=== PATIENT | female | born 1940 | race Hispanic/Latino ===

== ENCOUNTER 2017-12-12 07:59 | Day surgery (SDC) | payer MEDICARE ==
[2017-12-10 18:15] VITALS: BMI 21.4
[2017-12-12] MEDS ORDERED: Lidocaine PF 2% (5 ml) Inj (For Cardiac Arrhy) ONE (09:13)
[2017-12-12] MEDS ORDERED: Propofol 10 mg/ml Inj (20 ML) ONE (09:13)
[2017-12-12] MEDS ORDERED: Sodium Chloride 0.9% 1,000 ML IV SCH (10:00)
[2017-12-12 11:04] VITALS: PULSE 61; TEMP 98; O2SAT 97
[2017-12-12 12:31] VITALS: BP 156/77; RESP 15
== END 2017-12-12 11:40 | disposition home or self-care (01) ==
LOC: ENDO 07:59
PROVIDERS: ATTEND Specialist
DX: K31.7 Polyp of stomach and duodenum (principal); K44.9 Diaphragmatic hernia without obstruction or gangrene; D50.9 Iron deficiency anemia, unspecified
CPT/HCPCS: 43239; 88305; 88342; J2704; J7030; J7040